=== PATIENT | female | born 1960 | race Caucasian/White ===

== ENCOUNTER 2016-09-05 07:21 | Emergency (ER) | payer BC ==
[2016-09-05 07:25] VITALS: BP 136/87; PULSE 65; TEMP 97.9; BMI 23.8
--- NOTE | 2016-09-05 07:48 | PDOC ---
History of Present Illness - General Chief Complaint: Sore Throat Stated Complaint: sore throat Time Seen by Provider: 09/05/16 07:22 History Source: Patient Exam Limitations: No Limitations - History of Present Illness Initial Comments: 09/05/16 07:43 CHIEF COMPLAINT: Sore throat for 4 days HISTORY OF PRESENT ILLNESS: This is a healthy 56-year-old woman who complains of pain and burning her in her throat. The symptoms started about 4 days ago. Today the symptoms are worse. She has a burning sensation and pain in her throat. The pain gets worse with swallowing. She also complains of a dry cough. The cough is coming from the sore throat in her opinion. She starts to cough and then she starts to gag. She vomited once from coughing and gagging, but has no nausea. There is no fever. There are no swollen glands. There is no neck stiffness. There is positive pain on swallowing. REVIEW OF SYSTEMS: No fever or chills Positive dry cough No swollen glands Positive vomiting from coughing and gagging, and otherwise no nausea No diarrhea No skin rash No travel No sick contacts Past History - Past Medical History Allergies/Adverse Reactions: Allergies Allergy/AdvReac Type Severity Reaction Status Date / Time Penicillins Allergy Unknown Swelling Verified 09/05/16 07:22 Home Medications: Ambulatory Orders Naproxen [EC-Naprosyn] 375 mg PO BID PRN #14 tablet.ec 09/05/16 Anemia: No Asthma: No Cancer: No Cardiac Disorders: No CVA: No COPD: No CHF: No Dementia: No Diabetes: No GI Disorders: No Disorders: Yes (kidney stones requiring stent ) HTN: No Hypercholesterolemia: No Liver Disease: No Seizures: No Thyroid Disease: Yes (HYPOTHYROIDISM) - Surgical History Abdominal Surgery: Yes Appendectomy: No Cardiac Surgery: No Cholecystectomy: No GI Surgery: Yes (stent) Lung Surgery: No Neurologic Surgery: No Orthopedic Surgery: No - Psycho/Social/Smoking Cessation Hx Anxiety: No Suicidal Ideation: No Smoking Status: No Smoking History: Former smoker Have you smoked in the past 12 months: No Number of Cigarettes Smoked Daily: 0 If you are a former smoker, when did you quit?: 1992 Information on smoking cessation initiated: No Hx Alcohol Use: Yes Drug/Substance Use Hx: No Substance Use Type: Alcohol Hx Substance Use Treatment: No *Physical Exam - Vital Signs Last Vital Signs Temp Pulse Resp BP Pulse Ox 97.9 F 65 16 136/87 100 09/05/16 07:21 09/05/16 07:21 09/05/16 07:21 09/05/16 07:21 09/05/16 07:21 - Physical Exam Comments: 09/05/16 07:45 GENERAL: The patient is awake, alert, and fully oriented, in no acute distress. She grimaces when swallowing. Voice is slightly raspy, but patient is swallowing without difficulty handling saliva. HEAD: Normal with no signs of trauma. EYES: Pupils equal, round and reactive to light, extraocular movements intact, sclera anicteric, conjunctiva clear. ENT: Ears normal, nares patent, oropharynx with mild erythema and some mild swelling, but without exudates. Moist mucous membranes. NECK: Normal range of motion, supple without anterior or posterior cervical lymphadenopathy, no submandibular adenopathy, no JVD, or masses. LUNGS: Breath sounds equal, clear to auscultation bilaterally. No wheezes, and no crackles. HEART: Regular rate and rhythm, normal S1 and S2 without murmur, rub or gallop. ABDOMEN: Soft, nontender, normoactive bowel sounds. No guarding, no rebound. No masses. EXTREMITIES: Normal range of motion, no edema. No clubbing or cyanosis. No cords, erythema, or tenderness. NEUROLOGICAL: Cranial nerves II through XII grossly intact. Normal speech, normal gait. PSYCH: Normal mood, normal affect. SKIN: Warm, Dry, normal turgor, no rashes or lesions noted. Medical Decision Making - Medical Decision Making 09/05/16 07:47 Patient is a 56-year-old woman who presents with 4 days of sore throat, getting worse. On examination, there is no exudate, no adenopathy, and no fever. There is also the presence of a positive dry cough. These symptoms along with the conjunctival injection are suggestive of viral pharyngitis. Nevertheless, patient is concerned about strep. Double culture for rapid strep and routine strep culture sent. Plans for disposition and treatment pending results. 09/05/16 08:19 Rapid strep is negative. However, patient has extreme symptoms of burning and pain. She also has an event she has to go to tonight, as well as an interview coming up tomorrow. She is requesting aggressive treatment for symptomatic relief. Dexamethasone 10 mg orally 1 ordered for now. Naprosyn 375 twice a day started in the ED and ordered for home. Patient further advised to use warm saltwater gargles and Cepacol lozenges with benzocaine and menthol. She will follow-up with her primary care physician if the symptoms have not improved in 48 hours. *DC/Admit/Observation/Transfer Diagnosis at time of Disposition: Acute pharyngitis Qualifiers: Pharyngitis/tonsillitis etiology: unspecified etiology Qualified Code(s): J02.9 - Acute pharyngitis, unspecified - Discharge Dispostion Disposition: HOME Condition at time of disposition: Stable Admit: No - Prescriptions Prescriptions: Naproxen [EC-Naprosyn] 375 mg PO BID PRN #14 tablet.ec PRN Reason: throat pain or fever - Referrals Referrals: Isael Henning MD [Primary Care Provider] - - Patient Instructions Printed Discharge Instructions: DI for Viral Pharyngitis Additional Instructions: You were evaluated today for severe throat pain. The rapid strep test was negative. The final strep test will be ready in 48 hours. The most likely cause of the throat pain is a viral infection. Use local measures to help relieve the pain. Gargle with warm salt water every few hours to help relieve the pain. Use Cepacol lozenges with benzocaine and menthol to help numb the pain. These are available [id number] in the pharmacy. You have been prescribed Naprosyn 375 mg twice daily as needed for pain. You should expect her symptoms to improve in 48 hours. Return to the emergency department for any severe symptoms. Otherwise follow-up with your primary care physician if the symptoms are not improving in 48 hours.
[2016-09-05] MEDS ORDERED: NAPROXEN 375 MG TABLET (FP) PO ONE (08:16)
[2016-09-05] MEDS ORDERED: DEXAMETHASONE 4 MG TABLET (FP) PO ONE (08:16)
[2016-09-05] MEDS ORDERED: DEXAMETHASONE 4 MG TABLET (FP) ONE (08:20)
[2016-09-05] MEDS ORDERED: NAPROXEN 375 MG TABLET (FP) ONE (08:20)
== END 2016-09-05 08:28 | disposition home or self-care (01) ==
LOC: FER 07:21
DX: J02.9 Acute pharyngitis, unspecified (principal); E03.9 Hypothyroidism, unspecified; Z87.442 Personal history of urinary calculi; Z96.0 Presence of urogenital implants
CPT/HCPCS: 87070; 87430; 99281-25

== ENCOUNTER 2017-08-03 17:34 | Emergency (ER) | payer BC ==
[2017-08-03] MEDS ORDERED: IBUPROFEN 600 MG TABLET (FP) PO ONE ×2 (17:43→17:51)
[2017-08-03] MEDS ORDERED: ACETAMINOPHEN 325 MG TABLET (FP) PO ONE (17:43)
[2017-08-03 17:48] VITALS: BP 126/93; PULSE 73; TEMP 98.3; BMI 23.8
[2017-08-03] MEDS ORDERED: ACETAMINOPHEN 325 MG TABLET (FP) ONE (17:51)
[2017-08-03] MEDS ORDERED: diazePAM 5 MG TABLET PO ONE (17:55)
--- NOTE | 2017-08-03 17:57 | PDOC ---
History of Present Illness <JhoanamelidaNani - Last Filed: 08/03/17 18:46> - General History Source: Patient Exam Limitations: No Limitations - History of Present Illness Initial Comments: 08/03/17 17:52 Patient is a 57F with no significant medical history here today complaining of left calf pain. The patient states that she was dancing for some children when she felt a tightness in her left calf. She was not able to walk afterwards. She localizes the pain to her posterior calf. Her pain is worsened with foot flexion and extension. <Ernst Dooley - Last Filed: 08/03/17 19:02> - General Chief Complaint: Pain Stated Complaint: LEFT CALF PAIN Time Seen by Provider: 08/03/17 17:38 Past History <SaraiNani - Last Filed: 08/03/17 18:46> - Past Medical History Anemia: No Asthma: No Cancer: No Cardiac Disorders: No CVA: No COPD: No CHF: No Dementia: No Diabetes: No GI Disorders: No Disorders: Yes (kidney stones requiring stent ) HTN: No Hypercholesterolemia: No Liver Disease: No Seizures: No Thyroid Disease: Yes (HYPOTHYROIDISM) - Surgical History Abdominal Surgery: Yes Appendectomy: No Cardiac Surgery: No Cholecystectomy: No GI Surgery: Yes (stent) Lung Surgery: No Neurologic Surgery: No Orthopedic Surgery: No - Suicide/Smoking/Psychosocial Hx Smoking Status: No Smoking History: Former smoker Have you smoked in the past 12 months: No Number of Cigarettes Smoked Daily: 0 If you are a former smoker, when did you quit?: 1992 Information on smoking cessation initiated: No Hx Alcohol Use: Yes (1 GLASS OF WINE /NIGHT) Drug/Substance Use Hx: No Substance Use Type: Alcohol Hx Substance Use Treatment: No <SoumyaErnst - Last Filed: 08/03/17 19:02> - Past Medical History Allergies/Adverse Reactions: Allergies Allergy/AdvReac Type Severity Reaction Status Date / Time Penicillins Allergy Unknown Swelling Verified 08/03/17 17:35 Home Medications: Ambulatory Orders Diazepam [Valium] 5 mg PO ONCE PRN #10 tablet MDD 3 08/03/17 Ibuprofen [Motrin -] 600 mg PO TID PRN #90 tablet MDD 3 08/03/17 Review of Systems - Review of Systems Comments:: 08/03/17 17:57 GENERAL/CONSTITUTIONAL: No fever or chills. No weakness. HEAD, EYES, EARS, NOSE AND THROAT: No change in vision. No sore throat. CARDIOVASCULAR: No chest pain or shortness of breath RESPIRATORY: No cough, wheezing, or hemoptysis. GASTROINTESTINAL: No nausea, vomiting, diarrhea or constipation. GENITOURINARY: No dysuria, frequency, or change in urination. MUSCULOSKELETAL: Positive for left calf pain. No neck or back pain. SKIN: No rash NEUROLOGIC: No headache, vertigo, loss of consciousness, or change in strength/ sensation. ALLERGIC/IMMUNOLOGIC: No hives or skin allergy. <Ernst Dooley - Last Filed: 08/03/17 19:02> *Physical Exam - Vital Signs Last Vital Signs Temp Pulse Resp BP Pulse Ox 98.3 F 73 20 126/93 100 08/03/17 17:35 08/03/17 17:35 08/03/17 17:35 08/03/17 17:35 08/03/17 17:35 <Nani Moon - Last Filed: 08/03/17 18:46> - Vital Signs Last Vital Signs Temp Pulse Resp BP Pulse Ox 98.3 F 73 20 126/93 100 08/03/17 17:35 08/03/17 17:35 08/03/17 17:35 08/03/17 17:35 08/03/17 17:35 - Physical Exam Comments: 08/03/17 17:58 GENERAL: Awake, alert, and fully oriented, in no acute distress L CALF: Tender to palpation, no swelling, intact flexion of foot with compression of achilles tendon HEAD: No signs of trauma, normocephalic, atraumatic EYES: PERRLA, EOMI, sclera anicteric, conjunctiva clear LUNGS: No distress, speaks full sentences, clear to auscultation bilaterally HEART: Regular rate and rhythm, normal S1 and S2, no murmurs, rubs or gallops, peripheral pulses normal and equal bilaterally. ABDOMEN: Soft, nontender, normoactive bowel sounds. No guarding, no rebound. No masses EXTREMITIES: Normal inspection, Normal range of motion, no edema. No clubbing or cyanosis. NEUROLOGICAL: Cranial nerves II through XII grossly intact. Normal speech, no focal sensorimotor deficits SKIN: Warm, Dry, normal turgor, no rashes or lesions noted. <Huls,Ernst - Last Filed: 08/03/17 19:02> ED Treatment Course - Medications Given in the ED: ED Medications Discontinued Medications Generic Name Dose Route Start Last Admin Trade Name Candida PRN Reason Stop Dose Admin Acetaminophen 650 mg 08/03/17 17:43 08/03/17 17:53 Tylenol - PO 08/03/17 17:44 650 mg ONCE ONE Administration Diazepam 5 mg 08/03/17 17:55 08/03/17 18:01 Valium - PO 08/03/17 17:56 5 mg ONCE ONE Administration Ibuprofen 600 mg 08/03/17 17:43 08/03/17 17:52 Motrin - PO 08/03/17 17:44 600 mg ONCE ONE Administration <Nani Moon - Last Filed: 08/03/17 18:46> Medical Decision Making - Medical Decision Making 08/03/17 17:59 Patient is a 57F with no significant medical history here today complaining of left calf pain. Vital signs stable and normal. Bedside ultrasound shows intact achilles tendon. Will evaluate further with x-ray. Given tylenol, ibuprofen and 5mg valium for inflammation and muscle spasm. 08/03/17 19:01 X-rays negative. Discharged with return precautions and orthopedic follow up. <SoumyaErnst - Last Filed: 08/03/17 19:02> *DC/Admit/Observation/Transfer <Nani Moon - Last Filed: 08/03/17 18:46> <SoumyaErnst - Last Filed: 08/03/17 19:02> Diagnosis at time of Disposition: Gastrocnemius muscle strain - Discharge Dispostion Disposition: HOME Condition at time of disposition: Improved - Prescriptions Prescriptions: Diazepam [Valium] 5 mg PO ONCE PRN #10 tablet MDD 3 PRN Reason: Muscle Spasms Ibuprofen [Motrin -] 600 mg PO TID PRN #90 tablet MDD 3 PRN Reason: Pain - Referrals Referrals: Robert Conklin MD [Staff Physician] - - Patient Instructions Printed Discharge Instructions: Calf Muscle Strain Additional Instructions: you can ice your calf. take ibuprofen 600 mg every 8 hrs as needed for pain. take valium 5 mg every 8 hr as needed for spasm. drink plenty of water. do not drive after taking valium or mix with alcohol. follow up with an orthopedist for pain beyond one week. use crutches as needed.
[2017-08-03] MEDS ORDERED: diazePAM 5 MG TABLET ONE (18:00)
--- NOTE | 2017-08-03 18:08 | PDOC ---
Attending Attestation - Resident Resident Name: TankErnst thrasher - ED Attending Attestation I have performed the following: I have examined & evaluated the patient, The case was reviewed & discussed with the resident, I agree w/resident's findings & plan, Exceptions are as noted - Medical Decision Making 08/03/17 18:04 57 yo F with no pmhx here with injury to her left calf while dancing. felt sudden strain in calf, tighthenss now unable to extend foot or plantar flex without pain. no h/o surgery. hurt to put weight on heel. no swelling. no h/op dvt or pe. pain mod worse with weight bear. differential achilles strain/ tear, calc stress fx, gastroc tear or spasm, plan pain control, musle relaxer, bedside focused ED us left achilles tendon. focused ED us left achilles tendon, indication pain r/o tear. tendon scanned in two planes using high frequency linear transducer. tendon, intact, organized, no edema. impression: normal left achilles tendon. <Nani Moon - Last Filed: 08/03/17 18:04> - HPI HPI: 08/03/17 18:13 Patient is a 57 year old female with no significant PMHx, who presents with left calf cramping. Patient states that she was dancing and suddenly her left calf cramped up. She was driven to the ER bya family member. She is able to walk , but has trouble bearing weight on the left leg due to the pain. - Physicial Exam PE: 08/03/17 18:13 GENERAL: Awake, alert, and fully oriented, in no acute distress HEAD: No signs of trauma EYES: PERRLA, EOMI, sclera anicteric, conjunctiva clear ENT: Auricles normal inspection, nares patent, Moist mucosa NECK: Normal ROM, supple, no lymphadenopathy, JVD, or masses LUNGS: Breath sounds equal, clear to auscultation bilaterally. No wheezes, and no crackles HEART: Regular rate and rhythm, normal S1 and S2, no murmurs, rubs or gallops ABDOMEN: Soft, nontender, normoactive bowel sounds. No guarding, no rebound. No masses EXTREMITIES: Left posterior calf tenderness over the muscle. No palpable defect over Achilles. Distally neurovascularly intact. No bony tenderness at ankle, knee or hip. Normal range of motion, no edema. No clubbing or cyanosis. No cords, noerythema. NEUROLOGICAL: Normal speech SKIN: Warm, Dry, normal turgor, no rashes or lesions noted. No ecchymosis. <Joanna Gan - Last Filed: 08/03/17 18:15>
== END 2017-08-03 19:00 | disposition home or self-care (01) ==
LOC: FER 17:34
DX: S86.812A Strain of other muscle(s) and tendon(s) at lower leg level, left leg, initial encounter (principal); X50.0XXA Overexertion from strenuous movement or load, initial encounter; Y93.41 Activity, dancing; Y92.89 Other specified places as the place of occurrence of the external cause; E03.9 Hypothyroidism, unspecified; Z87.442 Personal history of urinary calculi; Z96.0 Presence of urogenital implants; Z87.891 Personal history of nicotine dependence; Z88.0 Allergy status to penicillin
CPT/HCPCS: 73610-TC-LT-FY; 73630-TC-LT; 99282-25

== ENCOUNTER 2018-09-30 12:00 | Emergency (ER) | payer BC ==
[2018-09-30 12:12] VITALS: BP 121/82; PULSE 64; TEMP 98.3; BMI 24.5
--- NOTE | 2018-09-30 12:23 | PDOC ---
History of Present Illness <Rajni Jensen - Last Filed: 09/30/18 13:50> - General History Source: Patient, Unavil. due to pt. cond. - History of Present Illness Initial Comments: 09/30/18 12:18 Sun Owens is a 58F with no significant PMH who presents with nasal congestion. Reports that she has been feeling sick for about 2 weeks. Has been having a lot of mucus down the back of her throat that causes her to cough, and has fits of coughing that to the point that she has thrown up and has chest pain and muscle fatigue from trying to clear the mucus. Episodes occur independent of position, occur during both sitting and standing, are not associated with a time of day, and do not seem to have a known allergen. Reports she has had similar symptoms in the past at other times of the year. Denies fever/chills, nausea, abdominal pain, mouth pain. Has had headache, with chest pain and sore throat associated with cough, productive cough of dark yellow mucus. No significant PMH. Allergy to penicillin. No medications taken. Non-smoker. <Sohail Rincon - Last Filed: 09/30/18 13:59> - General Chief Complaint: Cold Symptoms Stated Complaint: POST NASAL DRIP 2 WEEKS WITH COUGH Time Seen by Provider: 09/30/18 12:08 Past History <Rajni Jensen - Last Filed: 09/30/18 13:50> - Past Medical History Anemia: No Asthma: No Cancer: No Cardiac Disorders: No CVA: No COPD: No CHF: No Dementia: No Diabetes: No GI Disorders: No Disorders: Yes (kidney stones requiring stent ) HTN: No Hypercholesterolemia: No Liver Disease: No Seizures: No Thyroid Disease: Yes (HYPOTHYROIDISM) - Surgical History Abdominal Surgery: Yes Appendectomy: No Cardiac Surgery: No Cholecystectomy: No GI Surgery: Yes (stent ) Lung Surgery: No Neurologic Surgery: No Orthopedic Surgery: No - Suicide/Smoking/Psychosocial Hx Smoking Status: No Smoking History: Never smoked Have you smoked in the past 12 months: No Number of Cigarettes Smoked Daily: 0 If you are a former smoker, when did you quit?: 1992 Information on smoking cessation initiated: No Hx Alcohol Use: Yes (SOCIAL) Drug/Substance Use Hx: No Substance Use Type: Alcohol Hx Substance Use Treatment: No <Sohail Rincon - Last Filed: 09/30/18 13:59> - Past Medical History Allergies/Adverse Reactions: Allergies Allergy/AdvReac Type Severity Reaction Status Date / Time Penicillins Allergy Intermediate Swelling Verified 09/30/18 12:01 Home Medications: Ambulatory Orders Azithromycin [Zithromax 250mg Tablets -] 250 mg PO UTDICT #6 tab 09/30/18 Fluticasone Furoate [Flonase Sensimist] 5.9 ml NS DAILY #1 spray.susp 09/30/18 Guaifenesin [Mucinex] 600 mg PO BID 09/30/18 Loratadine [Claritin] 10 mg PO DAILY 09/30/18 Review of Systems - Review of Systems Able to Perform ROS?: Yes Is the patient limited Polish proficient: No Constitutional: No: Chills, Fever, Loss of Appetite, Weakness HEENTM: Yes: Nose Congestion. No: Eye Pain, Recent change in vision, Ear Pain, Nose Pain, Tinnitus, Throat Pain, Mouth Pain Respiratory: Yes: Cough, Shortness of Breath, Productive cough. No: Hemoptysis Cardiac (ROS): Yes: Chest Pain. No: Palpitations, Syncope, Chest Tightness ABD/GI: Yes: Vomiting. No: Abdominal Distended, Constipated, Diarrhea, Nausea, Poor Appetite : No: Burning, Dysuria, Discharge Musculoskeletal: No: Joint Pain, Muscle Pain, Muscle Weakness Neurological: Yes: Headache. No: Numbness, Paresthesia, Unsteady Gait <Sohail Rincon - Last Filed: 09/30/18 13:59> *Physical Exam - Vital Signs Last Vital Signs Temp Pulse Resp BP Pulse Ox 98.3 F 64 18 121/82 99 09/30/18 12:01 09/30/18 12:01 09/30/18 12:01 09/30/18 12:01 09/30/18 12:01 <Rajni Jensen - Last Filed: 09/30/18 13:50> - Vital Signs Last Vital Signs Temp Pulse Resp BP Pulse Ox 98.3 F 64 18 121/82 99 09/30/18 12:01 09/30/18 12:01 09/30/18 12:01 09/30/18 12:01 09/30/18 12:01 - Physical Exam General Appearance: Yes: Nourished, Appropriately Dressed. No: Apparent Distress HEENT: positive: EOMI, ASHISH, Normal Voice, Symmetrical, Pharynx Normal, Nasal Congestion, Rhinorrhea, Hearing Grossly Normal. negative: Scleral Icterus (R), Scleral Icterus (L), Muffled/Hoarse voice, Pharyngeal Erythema, Sinus Tenderness , Thrush Neck: positive: Trachea midline, Supple. negative: Lymphadenopathy (R), Lymphadenopathy (L) Respiratory/Chest: positive: Lungs Clear, Normal Breath Sounds, Other (coughing fits during exam). negative: Chest Tender, Respiratory Distress, Accessory Muscle Use, Labored Respiration, Crackles, Rales, Rhonchi, Wheezing Cardiovascular: positive: Regular Rhythm, Regular Rate. negative: Edema, Murmur Gastrointestinal/Abdominal: positive: Normal Bowel Sounds, Flat, Soft. negative : Organomegaly, Pulsatile Mass Musculoskeletal: positive: Normal Inspection Extremity: positive: Normal Capillary Refill, Normal Inspection, Normal Range of Motion Integumentary: positive: Normal Color, Dry, Warm Neurologic: positive: Fully Oriented, Alert, Normal Mood/Affect, Normal Response <Sohail Rincon - Last Filed: 09/30/18 13:59> ED Treatment Course - Medications Given in the ED: ED Medications Discontinued Medications Generic Name Dose Route Start Last Admin Trade Name Freq PRN Reason Stop Dose Admin Azithromycin 500 mg 09/30/18 13:06 09/30/18 13:12 Zithromax - PO 09/30/18 13:07 500 mg ONCE ONE Administration <Rajni Jensen - Last Filed: 09/30/18 13:50> Medical Decision Making - Medical Decision Making 09/30/18 12:39 Sun Owens is a 58F with no significant PMH who presents with nasal congestion. Given history and presentation of 2 weeks of cough with mucus without fever or facial sx, differential dx most likely allergy-related rhinorrhea vs upper airway cough syndrome vs. bronchitis vs. pneumonia. Will order CXR to evaluate for r/o PNA, 500mg azithromycin. <Sohail Rincon - Last Filed: 09/30/18 13:59> *DC/Admit/Observation/Transfer <Rajni Jensen - Last Filed: 09/30/18 13:50> <Sohail Rincon - Last Filed: 09/30/18 13:59> Diagnosis at time of Disposition: Upper airway cough syndrome, Cerumen impaction, Post-nasal drip, Sinus infection - Discharge Dispostion Condition at time of disposition: Stable - Prescriptions Prescriptions: Azithromycin [Zithromax 250mg Tablets -] 250 mg PO UTDICT #6 tab Fluticasone Furoate [Flonase Sensimist] 5.9 ml NS DAILY #1 spray.susp - Referrals Referrals: Tye Bender MD [Staff Physician] - - Patient Instructions Printed Discharge Instructions: DI for Acute Bronchitis Additional Instructions: You were evaluated today for your cough. We checked your lungs for signs of pneumonia, and did not find any. We also gave you an antibiotic, azithromycin, to help clear out a sinus infection in the event that you have had one. If you continue to feel worsening symptoms, including fevers, nausea, vomiting, or have new mouth or face pain, please return to the emergency room. For the congestion, try using a sinus rinse such as a NeilMed sinus medication to clear out some of the mucus that may be causing congestion. Please follow-up with an ear/nose/throat doctor such as Dr. Bender, will provide referral. Sending you home with more antibiotics to clear up any sinus infection you may have over the weekend, as well as a Flonase to help with allergy control if you have any.
--- NOTE | 2018-09-30 12:53 | PDOC ---
Attending Attestation - Resident Resident Name: Sohail Rincon - ED Attending Attestation I have performed the following: I have examined & evaluated the patient, The case was reviewed & discussed with the resident, I agree w/resident's findings & plan, Exceptions are as noted - HPI HPI: 09/30/18 13:07 58yo female with hx of hypothyroid with nasal congestion, post nasal gtt, and cough- productive yellow sputum x 2 weeks. 1 episode of post tussive emesis yesterday. No f/c. No facial pain. Pt states taking mucinex and claritin at home without relief. Pt denies cp/sob other than when she gets into a "coughing fit". No abd pain. No nausea today. Pt denies rash. Pt denies all other complaints. Has not seen ent. - Physicial Exam PE: 09/30/18 13:09 Gen: aaox3, nad, speaking in clear full sentences HEENT: impacted cerumen b/l, nares boggy, posterior pharynx no exudates or erythema, +post nasal gtt heart: +s1s2 reg lungs: cta b/l abd: soft, nt/nd +bs ext: no c/c/e - Medical Decision Making 09/30/18 12:53 a/p: 58yo female with post nasal gtt, cough- productive yellow sputum and sinus congestion -will obtain xray -needs nasal spray and most likely azithromycin -will need ENT follow up -no cp without the cough -nontender abd -no sinus ttp- low suspicion for acute sinusitis given 2 week hx and no fever -pt is not toxic in appearance 09/30/18 13:48 cxr clear will dc on nasal spray and azithromycin pt will need ent follow up
[2018-09-30] MEDS ORDERED: AZITHROMYCIN 250 MG TABLET PO ONE (13:06)
[2018-09-30] MEDS ORDERED: AZITHROMYCIN 250 MG TABLET ONE (13:11)
== END 2018-09-30 14:05 | disposition home or self-care (01) ==
LOC: FER 12:00
DX: R09.82 Postnasal drip (principal); R05 Cough; H61.20 Impacted cerumen, unspecified ear; J32.9 Chronic sinusitis, unspecified; E03.9 Hypothyroidism, unspecified; N20.0 Calculus of kidney
CPT/HCPCS: 71045-TC-FY; 99282-25

== ENCOUNTER 2019-05-19 18:08 | Emergency (ER) | payer OTHER ==
--- NOTE | 2019-05-19 18:10 | PDOC ---
History of Present Illness - General Chief Complaint: Respiratory Stated Complaint: SORE THROAT Time Seen by Provider: 05/19/19 18:09 History Source: Patient Exam Limitations: No Limitations - History of Present Illness Initial Comments: 59 year old female with PMH hypothyroidism, nephrolithiasis presented to the ED for a sore throat x1 month. Pt admitted to sore throat, dry cough, and feels as if there is "dripping down my throat". 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 Allergies: PCN ROS General: denied fever, chills, generalized weakness. HEENT: admitted to sore throat, rhinorrhea. denied ear pain. Cardiovascular: denied chest pain, palpitations, syncope, diaphoresis. Respiratory: denied shortness of breath, cough, sputum production, hemoptysis. Gastrointestinal: denied abdominal pain, nausea, vomiting, diarrhea, constipation, blood in stool. Genitourinary: denied dysuria, increased urinary frequency, hematuria, urinary incontinence, flank pain. Back: denied back pain. Musculoskeletal: denied joint pain, muscle pain, joint swelling. Neurological: denied headache, dizziness, numbness, tingling, weakness. Integumentary: denied rash, laceration, abrasion. Hematologic/Lymphatic: denied bruising or bleeding. PE Constitutional: Well-nourished, Well-developed, appearing stated age. HEENT: head is normocephalic, atraumatic. EOMI. PERRLA. mild posterior pharyngeal erythema. no tonsillar swelling or exudates bilaterally. uvula midline. no peritonsillar swelling. no jaw tenderness or misalignment. tendern left sided lymphadenopathy. Neck: supple. Full ROM. Cardiovascular: regular heart rhythm. Normal S1 and S2. no murmurs. no pericardial friction rub. Respiratory: clear to auscultation bilaterally. no crackles, rhonchi or wheezing. no stridor. Gastrointestinal: soft, flat, nontender. normal bowel sounds. no rebound, guarding, or masses. Extremities: peripheral pulses intact and equal. no lower extremity edema noted. Neurological: CN 2-12 grossly intact. moves all four extremities. Psych: awake, alert, oriented x3. follows commands. answers questions appropriately. Past History - Past Medical History Allergies/Adverse Reactions: Allergies Allergy/AdvReac Type Severity Reaction Status Date / Time Penicillins Allergy Intermediate Swelling Verified 09/30/18 12:01 Home Medications: Ambulatory Orders Azithromycin [Zithromax 250mg Tablets -] 250 mg PO UTDICT #6 tab 05/19/19 - Psycho Social/Smoking Cessation Hx Smoking Status: No Smoking History: Never smoked Have you smoked in the past 12 months: No Number of Cigarettes Smoked Daily: 0 If you are a former smoker, when did you quit?: 1992 Hx Alcohol Use: Yes (SOCIAL) Drug/Substance Use Hx: No Substance Use Type: Alcohol Hx Substance Use Treatment: No Medical Decision Making - Medical Decision Making 59 year old female with above PMH presented to ED for evaluation of sore throat. Initial Vital Signs Temp Pulse Resp BP Pulse Ox 97.8 F 58 L 16 157/87 100 05/19/19 18:09 05/19/19 18:09 05/19/19 18:09 05/19/19 18:09 05/19/19 18:09 Afebrile. Mild bradycardia. No tachypnea. Hypertension. No hypoxia on room air. Labs ordered: rapid strep Imaging ordered: none Medications ordered: none 05/19/19 18:46 Laboratory Last Values Group A Strep Rapid Negative (Negative) 05/19/19 18:20 Will prescribe Z-pack for cough. Pt advised to F/U with PCP. Pt discharged. Discharge - Discharge Information Problems reviewed: Yes Clinical Impression/Diagnosis: Sore throat, Cough Condition: Stable Disposition: HOME - Admission No - Additional Discharge Information Prescriptions: Azithromycin [Zithromax 250mg Tablets -] 250 mg PO UTDICT #6 tab - Follow up/Referral Referrals: Jaya Mishra MD [Primary Care Provider] - - Patient Discharge Instructions Additional Instructions: Follow up with your primary care doctor within 3 days regarding your Emergency Room visit. Your care is not complete until you follow up. Return to the Emergency Room for increasing pain, chest pain, shortness of breath, fever>103F, fever>5 days, vomiting, syncope, or any other new, worsening or concerning symptoms. Take Tylenol over the counter for pain. Take as advised on label. Do warm salt-water gargles to help ease your sore throat. - Post Discharge Activity
--- NOTE | 2019-05-19 18:11 | PDOC ---
Attending Attestation - Resident Resident Name: Alisha Scott - ED Attending Attestation I have performed the following: I have examined & evaluated the patient, The case was reviewed & discussed with the resident, I agree w/resident's findings & plan, Exceptions are as noted - HPI HPI: 59 yo F history hypothyroid, nephrolithiasis presents with cough for past 1 month, associated with post-nasal drip, sore throat. +Multiple sick contacts, works with children. Denies fever, chills, muscle aches. Able to swallow without difficulty. Denies SOB, MCCANN. She has been treated for reactive airway when she has had viral illnesses in the past. - Physicial Exam PE: GENERAL: Awake, alert, and fully oriented, in no acute distress HEAD: No signs of trauma EYES: PERRLA, EOMI, sclera anicteric, conjunctiva clear ENT: Auricles normal inspection, hearing grossly normal, nares patent, oropharynx clear without exudates. Moist mucosa. +Boggy turbinates B/L NECK: Normal ROM, supple, no lymphadenopathy, JVD, or masses LUNGS: Breath sounds equal, clear to auscultation bilaterally. No wheezes, and no crackles. Intermittent loose, hacking cough HEART: Regular rate and rhythm, normal S1 and S2, no murmurs, rubs or gallops ABDOMEN: Soft, nontender, normoactive bowel sounds. No guarding, no rebound. No masses EXTREMITIES: Normal range of motion, no edema. No clubbing or cyanosis. No cords, erythema, or tenderness NEUROLOGICAL: Cranial nerves II through XII grossly intact. Normal speech, normal gait. Motor and sensation intact SKIN: Warm, dry, normal turgor, no rashes or lesions noted. - Medical Decision Making Suspect bronchitis based on the duration of symptoms (1 month of productive cough), will treat with abx. No need for nebs or steroids at this point, as she does not have any symptoms of reactive airway.
[2019-05-19 18:23] VITALS: BP 157/87; PULSE 58; TEMP 97.8; BMI 24.7
== END 2019-05-19 18:53 | disposition home or self-care (01) ==
LOC: FER 18:08
DX: J02.9 Acute pharyngitis, unspecified (principal); R05 Cough; E06.9 Thyroiditis, unspecified; Z88.0 Allergy status to penicillin; R00.1 Bradycardia, unspecified
CPT/HCPCS: 87070; 87880; 99283-25

== ENCOUNTER 2023-04-05 07:29 | Day surgery (SDC) | payer OTHER ==
[2023-04-01 11:55] VITALS: BMI 26.5
[2023-04-05] MEDS ORDERED: LIDOCAINE HCL/PF 2% SDV 5ML VIAL ONE (07:40)
[2023-04-05] MEDS ORDERED: PROPOFOL 20 ML ONE ×2 (07:41)
[2023-04-05 14:09] VITALS: TEMP 97.9
[2023-04-05 14:14] VITALS: BP 105/70; PULSE 60; RESP 17
== END 2023-04-05 09:20 | disposition home or self-care (01) ==
LOC: FASU-ENDO 07:29
PROVIDERS: ATTEND Internal Medicine Gastroenterology
PROC: 0DJD8ZZ Inspection of Lower Intestinal Tract, Via Natural or Artificial Opening Endoscopic (ICD-10-PCS; principal; 2023-04-05 08:20)
DX: Z12.11 Encounter for screening for malignant neoplasm of colon (principal); Z83.719 Family history of colon polyps, unspecified

== ENCOUNTER 2023-12-30 08:31 | Emergency (ER) | payer OTHER ==
[2023-12-30 08:42] VITALS: BP 134/80; PULSE 74; RESP 17; TEMP 98.2; BMI 25.6
[2023-12-30] MEDS ORDERED: IBUPROFEN 600 MG TABLET (FP) PO ONE (09:30)
[2023-12-30] MEDS: IBUPROFEN 600 MG TABLET (FP) PO ONE (09:35)
== END 2023-12-30 09:40 | disposition home or self-care (01) ==
LOC: FER 08:31
DX: R22.31 Localized swelling, mass and lump, right upper limb (principal); L03.113 Cellulitis of right upper limb
CPT/HCPCS: 99283-25